=== PATIENT | female | born 1940 | race Caucasian/White ===

== ENCOUNTER 2020-08-09 16:14 | Outpatient (CLI) | payer MEDICARE, OTHER | END 2020-08-09 16:15 | disposition critical access hospital (66) | LOC: EMS 16:14 | DX: R55 Syncope and collapse (principal) | CPT/HCPCS: A0425; A0429 ==

== ENCOUNTER 2020-08-09 17:00 | Emergency (ER) | payer MEDICARE, OTHER ==
[2020-08-09] MEDS ORDERED: SODIUM CHLORIDE 0.9% 1,000 ML IV ONE (17:01)
--- NOTE | 2020-08-09 17:03 | ED Physician Documentation ---
PD HPI SYNCOPE - Stated complaint Stated Complaint: SYNCOPE - History obtained from History obtained from: Patient, EMS - Additional information Additional information: 79-year-old woman presents by EMS for evaluation of syncope. Patient is a poor historian, this is an unclear acuity. I am led to understand that her should be arriving at some point at which point I will get a history from him. Per EMS she was sitting down eating and passed out for a couple of minutes. Patient has no complaints. Review of Systems Unable to obtain: Confused PD PAST MEDICAL HISTORY - Present Medications Home Medications: Ambulatory Orders Medication Instructions Recorded Confirmed Amlodipine Besylate [Norvasc] 5 mg PO DAILY 08/09/20 08/09/20 Atorvastatin Calcium 20 mg DAILY 08/09/20 08/09/20 Donepezil HCl [Aricept] 10 mg DAILY 08/09/20 08/09/20 Gabapentin [Neurontin] 100 mg PO DAILY 08/09/20 08/09/20 Memantine HCl [Namenda] 10 mg PO BID 08/09/20 08/09/20 Mirabegron [Myrbetriq] 50 mg PO DAILY 08/09/20 08/09/20 Telmisartan [Micardis] 20 mg PO BID 08/09/20 08/09/20 - Allergies Allergies/Adverse Reactions: Allergies Allergy/AdvReac Type Severity Reaction Status Date / Time No Known Drug Allergies Allergy Verified 08/09/20 17:14 PD ED PE NORMAL - Vitals Vital signs reviewed: Yes - General General: No acute distress, Other (He is alert and oriented to person but not place time or events. She says the year is 1976. Has no idea who the president is.) - HEENT HEENT: PERRL, EOMI - Neck Neck: Supple, no meningeal sign, No bony TTP - Cardiac Cardiac: RRR, No murmur - Respiratory Respiratory: No respiratory distress, Clear bilaterally - Abdomen Abdomen: Soft, Non tender - Back Back: No CVA TTP, No spinal TTP - Derm Derm: Normal color, Warm and dry - Extremities Extremities: No edema, No calf tenderness / cord - Neuro Neuro: safety officer 2-12 intact Eye Opening: Spontaneous Motor: Obeys Commands Verbal: Confused GCS Score: 14 Results - Vitals Vitals: Vital Signs - 24 hr 08/09/20 17:00 Temperature 36.5 C Heart Rate 60 Respiratory 16 Rate Blood Pressure 122/61 O2 Saturation 98 Oxygen O2 Source Room air - EKG (time done) 1703 Rate: Rate (enter#) (59) Rhythm: NSR [place]: LAD Intervals: Normal [place] QRS: Normal Ischemia: Normal ST segments - Labs Labs: Laboratory Tests 08/09/20 08/09/20 08/09/20 17:30 17:30 17:30 WBC 5.8 RBC 4.23 Hgb 13.1 Hct 39.9 MCV 94.3 MCH 31.0 MCHC 32.8 RDW 12.5 Plt Count 321 MPV 8.3 Neut # (Auto) 3.9 Lymph # (Auto) 1.3 L [place] # (Auto) 0.5 Eos # (Auto) 0.0 Baso # (Auto) 0.0 Absolute Nucleated RBC 0.00 Nucleated RBC % 0.0 PT 11.7 INR 1.1 Sodium 130 L Potassium 4.2 Chloride 95 L Carbon Dioxide 24 Anion Gap 11.0 BUN 13 Creatinine 0.7 Estimated GFR (MDRD) 81 L Glucose 106 H Calcium 9.2 Magnesium 2.0 Total Bilirubin 0.6 AST 19 ALT 25 Alkaline Phosphatase 86 Troponin I High Sens Total Protein 7.2 Albumin 4.0 Globulin 3.2 Albumin/Globulin Ratio 1.3 Lipase 45 Ethyl Alcohol 21.7 08/09/20 17:30 WBC RBC Hgb Hct MCV MCH MCHC RDW Plt Count MPV Neut # (Auto) Lymph # (Auto) [place] # (Auto) Eos # (Auto) Baso # (Auto) Absolute Nucleated RBC Nucleated RBC % PT INR Sodium Potassium Chloride Carbon Dioxide Anion Gap BUN Creatinine Estimated GFR (MDRD) Glucose Calcium Magnesium Total Bilirubin AST ALT Alkaline Phosphatase Troponin I High Sens 8.0 Total Protein Albumin Globulin Albumin/Globulin Ratio Lipase Ethyl Alcohol PD MEDICAL DECISION MAKING - ED course ED course: Her arrived and 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 She has also a history of overactive bladder, hypertension. He confirmed that she had a syncopal episode a few weeks ago, they were in another state the time. Negative work-up in the ED at that time including CT of the head. Departure - Departure Disposition: 01 Home, Self Care Clinical Impression: Syncope Qualifiers: Encounter type: initial encounter Condition: Good Record reviewed to determine appropriate education?: Yes Instructions: ED Fainting Unkn Cause Comments: You were seen today after an episode of syncope. The only abnormal finding was a mildly low sodium of 130 which should generally be asymptomatic but needs to be followed by your primary care physician. Return for new or worsening symptoms. Follow-up with your new doctor as scheduled, discuss potential Holter monitoring and echo since this is now recurrent issue.
[2020-08-09 17:41] LABS: BASOPHILS % (AUTO) 0.5 %; EOSINOPHILS % (AUTO) 0.3 %; HCT - HEMATOCRIT 39.9 % (37.0-47.0); HGB - HEMOGLOBIN 13.1 g/dL (12.0-16.0); LYMPHOCYTES # (AUTO) 1.3 10^3/uL (1.5-3.5); LYMPHOCYTES % (AUTO) 22.6 %; MEAN CORPUSCULAR HGB CONC 32.8 g/dL (32.0-36.0); MEAN CORPUSCULAR VOLUME 94.3 fL (81.0-99.0); MEAN PLATELET VOLUME 8.3 fL (7.9-10.8); MONOCYTES # (AUTO) 0.5 10^3/uL (0.0-1.0); MONOCYTES % (AUTO) 8.7 %; NEUTROPHILS # (AUTO) 3.9 10^3/uL (1.5-6.6); NEUTROPHILS % (AUTO) 67.6 %; PLT - PLATELET COUNT 321 10^3/uL (130-450); RED BLOOD COUNT 4.23 10^6/uL (4.20-5.40); RED CELL DISTRIBUTION WIDTH 12.5 % (12.0-15.0); WHITE BLOOD COUNT 5.8 x10^3/uL (4.8-10.8)
[2020-08-09 17:42] LABS: INR 1.1 (0.8-1.2); PT - PROTHROMBIN TIME 11.7 secs (9.9-12.6)
[2020-08-09 17:50] LABS: ALBUMIN/GLOBULIN RATIO 1.3 (1.0-2.2); BILIRUBIN,TOTAL 0.6 mg/dL (0.2-1.0); CALCIUM 9.2 mg/dL (8.5-10.3); CREATININE 0.7 mg/dL (0.4-1.0); ETOH - ETHANOL 21.7 mg/dL; POTASSIUM 4.2 mmol/L (3.5-5.0); TOTAL PROTEIN 7.2 g/dL (6.7-8.2)
[2020-08-09 18:11] VITALS: BP 130/74
== END 2020-08-09 18:15 | disposition home or self-care (01) ==
LOC: ED 17:00
DX: R55 Syncope and collapse (principal); F03.90 Unspecified dementia, unspecified severity, without behavioral disturbance, psychotic disturbance, mood disturbance, and anxiety; E87.1 Hypo-osmolality and hyponatremia; I10 Essential (primary) hypertension
CPT/HCPCS: 36415; 80053; 83690; 83735; 84484; 85025; 85610; 93005; 99281; 99284; G0480; 80320

== ENCOUNTER 2020-11-24 13:10 | Outpatient (CLI) | payer MEDICARE ==
--- NOTE | 2020-11-27 15:50 | Mammography Report ---
BILATERAL DIGITAL SCREENING MAMMOGRAM: 11/24/2020 CLINICAL: Family history of breast cancer. Comparison is made to exams dated: 10/04/2019 mammogram, 08/08/2018 mammogram, and 07/05/2017 mammogram - [facility]. There are scattered fibroglandular elements in both breasts. No significant masses, calcifications, or other findings are seen in either breast. There has been no significant interval change. IMPRESSION: NEGATIVE There is no mammographic evidence of malignancy. A 1 year screening mammogram is recommended. This exam was interpreted at Station ID: [id number]. NOTE: For mammograms, a report in lay terms will be sent to the patient. Approximately 15% of breast malignancies will not be visualized mammographically. In the management of a palpable breast mass, a negative mammogram must not discourage biopsy of a clinically suspicious lesion. Electronically Signed By: Alonso chávez/suzy:11/26/2020 13:45:37 ACR BI-RADS Category 1: Negative [id number] [id number] -Scattered fibroglandular 1 Mammogram [id number] 1 year screening B
== END 2020-11-24 13:11 | disposition home or self-care (01) ==
LOC: DI.S 13:10
DX: Z12.31 Encounter for screening mammogram for malignant neoplasm of breast (principal); Z80.3 Family history of malignant neoplasm of breast

== ENCOUNTER 2021-08-24 07:00 | Outpatient (CLI) | payer MEDICARE ==
[2021-08-24 20:40] LABS: BILIRUBIN,URINE NEGATIVE (NEGATIVE); GLUCOSE, URINE (UA) NEGATIVE (NEGATIVE); KETONES,URINE (UA) NEGATIVE (NEGATIVE); LEUKOCYTE ESTERASE, URINE NEGATIVE (NEGATIVE); NITRITE,URINE NEGATIVE (NEGATIVE); OCCULT BLOOD,URINE NEGATIVE (NEGATIVE); PROTEIN,URINE NEGATIVE (NEGATIVE); UROBILINOGEN,URINE 0.2 (NORMAL) E.U./dL (NORMAL)
[2021-08-24 20:43] LABS: CLARITY,URINE CLEAR (CLEAR)
== END 2021-08-24 23:59 | disposition home or self-care (01) ==
LOC: LAB.R 07:00
PROVIDERS: ATTEND Nurse Practitioner
DX: N39.46 Mixed incontinence (principal); R35.1 Nocturia; R35.0 Frequency of micturition
CPT/HCPCS: 81001; 81003; 87086

== ENCOUNTER 2021-08-24 13:09 | Outpatient (CLI) | payer MEDICARE | END 2021-08-24 13:10 | disposition home or self-care (01) | LOC: LAB.S 13:09 | PROVIDERS: ATTEND Nurse Practitioner | DX: N39.46 Mixed incontinence (principal); R35.1 Nocturia; R35.0 Frequency of micturition; Z53.9 Procedure and treatment not carried out, unspecified reason ==

== ENCOUNTER 2021-08-29 21:25 | Outpatient (CLI) | payer MEDICARE | END 2021-08-29 21:26 | disposition EMS.NT | LOC: EMS 21:25 | DX: Z03.89 Encounter for observation for other suspected diseases and conditions ruled out (principal) ==

== ENCOUNTER 2021-10-05 10:03 | Outpatient (CLI) | payer MEDICARE ==
[2021-10-05 14:32] LABS: BASOPHILS % (AUTO) 0.7 %; EOSINOPHILS # (AUTO) 0.1 10^3/uL (0.0-0.7); EOSINOPHILS % (AUTO) 2.5 %; HCT - HEMATOCRIT 39.3 % (37.0-47.0); HGB - HEMOGLOBIN 12.8 g/dL (12.0-16.0); LYMPHOCYTES # (AUTO) 1.2 10^3/uL (1.5-3.5); LYMPHOCYTES % (AUTO) 30.6 %; MEAN CORPUSCULAR HEMOGLOBIN 30.5 pg (27.0-31.0); MEAN CORPUSCULAR HGB CONC 32.6 g/dL (32.0-36.0); MEAN CORPUSCULAR VOLUME 93.6 fL (81.0-99.0); MEAN PLATELET VOLUME 8.4 fL (7.9-10.8); MONOCYTES # (AUTO) 0.4 10^3/uL (0.0-1.0); MONOCYTES % (AUTO) 9.5 %; NEUTROPHILS # (AUTO) 2.3 10^3/uL (1.5-6.6); NEUTROPHILS % (AUTO) 56.5 %; PLT - PLATELET COUNT 346 10^3/uL (130-450); RED CELL DISTRIBUTION WIDTH 12.5 % (12.0-15.0)
[2021-10-05 15:42] LABS: ALBUMIN 3.8 g/dL (3.2-5.5); ALBUMIN/GLOBULIN RATIO 1.3 (1.0-2.2); ALKALINE PHOSPHATASE 88 IU/L (42-121); ALT ALANINE AMINOTRANSFERASE 17 IU/L (10-60); AST ASPARTATE AMINOTRANSFERASE 19 IU/L (10-42); BILIRUBIN,TOTAL 0.7 mg/dL (0.2-1.0); BUN - BLOOD UREA NITROGEN 8 mg/dL (6-20); CALCIUM 9.3 mg/dL (8.5-10.3); CARBON DIOXIDE - CO2 30 mmol/L (21-32); CHLORIDE 93 mmol/L (101-111); CHOL/HDL RATIO 1.8 (<4.4); CHOLESTEROL 161 mg/dL; CK- CREATINE KINASE 87 IU/L (22-269); CREATININE 0.6 mg/dL (0.4-1.0); GFR - MDRD 97 (>89); GLUCOSE 97 mg/dL (70-100); HDL CHOLESTEROL 92 mg/dL; LDL CHOLESTEROL,CALCULATED 60 mg/dL; LDL/HDL RATIO 0.7 (<4.4); POTASSIUM 4.3 mmol/L (3.5-5.0); SODIUM 129 mmol/L (135-145); TOTAL PROTEIN 6.7 g/dL (6.7-8.2); TRIGLYCERIDES 44 mg/dL; VLDL CHOLESTEROL 9 mg/dL
== END 2021-10-05 10:04 | disposition home or self-care (01) ==
LOC: LAB.S 10:03
PROVIDERS: ATTEND Internal Medicine
DX: Z00.00 Encounter for general adult medical examination without abnormal findings (principal); F03.90 Unspecified dementia, unspecified severity, without behavioral disturbance, psychotic disturbance, mood disturbance, and anxiety; Z86.010 Personal history of colon polyps; E78.5 Hyperlipidemia, unspecified; I10 Essential (primary) hypertension; N32.81 Overactive bladder; Z79.899 Other long term (current) drug therapy
CPT/HCPCS: 36415; 80053; 80061; 82550; 83721; 84443; 85025

== ENCOUNTER 2021-10-15 15:56 | Outpatient (CLI) | payer MEDICARE | END 2021-10-15 15:57 | disposition home or self-care (01) | LOC: EMS 15:56 | PROVIDERS: ATTEND Internal Medicine | DX: R53.1 Weakness (principal); R41.0 Disorientation, unspecified; Z74.01 Bed confinement status | CPT/HCPCS: A0425; A0428 ==

== ENCOUNTER 2022-12-21 16:27 | Outpatient (CLI) | payer MEDICARE | END 2022-12-21 23:59 | disposition critical access hospital (66) | LOC: EMS 16:27 | DX: S89.92XA Unspecified injury of left lower leg, initial encounter (principal); M25.562 Pain in left knee; X58.XXXA Exposure to other specified factors, initial encounter; Z74.01 Bed confinement status; Z96.652 Presence of left artificial knee joint | CPT/HCPCS: A0425; A0429 ==